=== PATIENT | male | born 1960 | race Caucasian/White ===

== ENCOUNTER 2017-05-29 20:46 | Emergency (ER) | payer SELFPAY ==
[2017-05-29 20:56] VITALS: BP 101/60
[2017-05-29 21:13] LABS: Hemoglobin 11.7 gm/dl (11.8-15.2); Mean Corpuscular HGB Conc 35 % (32-34); Mean Corpuscular Hemoglobin 30 pg (28-32); Mean Corpuscular Volume 85 fl (84-94); Platelet Count 328 K/mm3 (140-440); Red Blood Count 3.88 M/mm3 (3.65-5.03); Red Cell Distribution Width 14.8 % (13.2-15.2); White Blood Count 5.4 K/mm3 (4.5-11.0)
[2017-05-29 21:27] LABS: Alanine Aminotransferase 22 units/L (7-56); Albumin/Globulin Ratio 0.4 %; Alkaline Phosphatase 96 units/L (35-129); Anion Gap 11 mmol/L; BUN/Creatinine Ratio 10; Blood Urea Nitrogen 7 mg/dL (9-20); Calcium 8.2 mg/dL (8.4-10.2); Carbon Dioxide 26 mmol/L (22-30); Chloride 100.6 mmol/L (98-107); Glucose 84 mg/dL (75-100); Lipase 73 units/L (13-60); Potassium 3.8 mmol/L (3.6-5.0); Sodium 134 mmol/L (137-145); Total Protein 9.7 g/dL (6.3-8.2)
[2017-05-29 21:46] LABS: Basophils % (Manual) 0 % (0.0-1.8); Blastocytes % (Manual) 0 %
[2017-05-29 21:47] LABS: Anisocytosis 1+; Diff Status Complete; Poikilocytosis Few
[2017-05-29 23:04] LABS: Bacteria,Urine 1+ /HPF (Negative); Bilirubin,Urine NEG (Negative); Blood,Urine NEG (Negative); Ketones,Urine NEG (Negative); Leukocyte Esterase,Urine NEG (Negative); Mucus,Urine FEW /HPF; Nitrite,Urine NEG (Negative); Protein,Urine <15 mg/dL mg/dL (Negative); Urobilinogen,Urine < 2.0 mg/dL (<2.0)
[2017-05-29 23:05] LABS: WBC,Urine < 1.0 /HPF (0.0-6.0)
== END 2017-05-30 00:40 | disposition left against medical advice (07) ==
LOC: ED 20:46
DX: R10.9 Unspecified abdominal pain (principal); Z53.21 Procedure and treatment not carried out due to patient leaving prior to being seen by health care provider
CPT/HCPCS: 36415; 80053; 81001; 83690; 85007; 85025

== ENCOUNTER 2017-07-05 23:24 | Emergency (ER) | payer MEDICAID | END 2017-07-05 23:30 | disposition left against medical advice (07) | LOC: ED 23:24 | DX: R10.9 Unspecified abdominal pain (principal); Z53.21 Procedure and treatment not carried out due to patient leaving prior to being seen by health care provider ==

== ENCOUNTER 2017-07-13 19:08 | Emergency (ER) | payer MEDICAID ==
[2017-07-13 21:41] LABS: Hematocrit 35.5 % (35.5-45.6); Hemoglobin 12.2 gm/dl (11.8-15.2); Mean Corpuscular HGB Conc 34 % (32-34); Mean Corpuscular Hemoglobin 28 pg (28-32); Mean Corpuscular Volume 82 fl (84-94); Platelet Count 274 K/mm3 (140-440); Red Blood Count 4.32 M/mm3 (3.65-5.03); Red Cell Distribution Width 15.5 % (13.2-15.2); White Blood Count 6.5 K/mm3 (4.5-11.0)
[2017-07-13 21:41] LABS: Bilirubin,Urine NEG (Negative); Blood,Urine SM (Negative); Ketones,Urine NEG (Negative); Leukocyte Esterase,Urine NEG (Negative); Mucus,Urine FEW /HPF; Nitrite,Urine NEG (Negative); Protein,Urine <15 mg/dL mg/dL (Negative)
[2017-07-13 22:02] LABS: Alanine Aminotransferase 16 units/L (7-56); Albumin 3.5 g/dL (3.9-5); Alkaline Phosphatase 105 units/L (35-129); Anion Gap 16 mmol/L; BUN/Creatinine Ratio 11; Blood Urea Nitrogen 10 mg/dL (9-20); Calcium 8.9 mg/dL (8.4-10.2); Carbon Dioxide 24 mmol/L (22-30); Chloride 100.9 mmol/L (98-107); Glucose 115 mg/dL (75-100); Lipase 56 units/L (13-60); Potassium 3.8 mmol/L (3.6-5.0); Sodium 137 mmol/L (137-145)
[2017-07-13 22:26] LABS: Basophils % (Manual) 0 % (0.0-1.8); Blastocytes % (Manual) 0 %
[2017-07-13 22:27] LABS: Anisocytosis 1+; Diff Status Complete; Poikilocytosis Few
[2017-07-13 22:45] LABS: Albumin/Globulin Ratio 0.5 %; Total Protein 10.3 g/dL (6.3-8.2)
[2017-07-14 04:14] VITALS: BP 96/64
== END 2017-07-14 07:30 | disposition left against medical advice (07) ==
LOC: ED 19:08
DX: R10.9 Unspecified abdominal pain (principal); Z53.21 Procedure and treatment not carried out due to patient leaving prior to being seen by health care provider
CPT/HCPCS: 36415; 80053; 81001; 83690; 85007; 85025

== ENCOUNTER 2017-07-29 11:25 | Emergency (ER) | payer MEDICAID ==
[2017-07-29 11:43] VITALS: BP 109/75
[2017-07-29 12:13] LABS: Hematocrit 35.9 % (35.5-45.6); Hemoglobin 12.4 gm/dl (11.8-15.2); Mean Corpuscular HGB Conc 35 % (32-34); Mean Corpuscular Hemoglobin 28 pg (28-32); Mean Corpuscular Volume 82 fl (84-94); Platelet Count 292 K/mm3 (140-440); Red Blood Count 4.37 M/mm3 (3.65-5.03); White Blood Count 8.9 K/mm3 (4.5-11.0)
[2017-07-29 12:28] LABS: Anion Gap 16 mmol/L; BUN/Creatinine Ratio 12; Blood Urea Nitrogen 11 mg/dL (9-20); Calcium 8.9 mg/dL (8.4-10.2); Carbon Dioxide 24 mmol/L (22-30); Chloride 97.4 mmol/L (98-107); Glucose 84 mg/dL (75-100); Potassium 4.3 mmol/L (3.6-5.0); Sodium 133 mmol/L (137-145)
--- NOTE | 2017-07-29 12:51 | XRay Report ---
Chest 2 views: Findings: Normal cardiomediastinal silhouette. Trachea is midline. No consolidation, pneumothorax or pleural effusion. Impression: No acute cardiopulmonary findings.
[2017-07-29] MEDS ORDERED: NACL 0.9% 1000 ML IV ONE (17:11)
[2017-07-29] MEDS ORDERED: TORADOL IV ONE (17:12)
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
[2017-07-29] MEDS ORDERED: TORADOL IM ONE (17:45)
== END 2017-07-29 18:17 | disposition home or self-care (01) ==
LOC: ED 11:25
DX: J01.10 Acute frontal sinusitis, unspecified (principal); K85.90 Acute pancreatitis without necrosis or infection, unspecified; F17.200 Nicotine dependence, unspecified, uncomplicated; Z21 Asymptomatic human immunodeficiency virus [HIV] infection status
CPT/HCPCS: 36415; 71020; 80048; 85027; 87116; 87430; 96372; 99284; J1885